=== PATIENT | male | born 1980 | race Hispanic/Latino ===

== ENCOUNTER 2017-04-17 06:51 | Emergency (ER) | payer OTHER ==
[2017-04-17 07:39] LABS: RAPID GROUP A STREP NEGATIVE (NEGATIVE)
[2017-04-17] MEDS ORDERED: ACETAMINOPHEN 325 MG TAB ONE (08:14)
== END 2017-04-17 10:01 | disposition home or self-care (01) ==
LOC: EDH 06:51
DX: J11.1 Influenza due to unidentified influenza virus with other respiratory manifestations (principal); M79.1 Myalgia
CPT/HCPCS: 71046; 87804; 87880